=== PATIENT | male | born 1990 | race Caucasian/White ===

== ENCOUNTER 2022-11-22 09:25 | Outpatient (CLI) | payer OTHER, SELFPAY ==
--- NOTE | ~2022-11-22 | XR_ITS ---
EXAMINATION: XR fl inj shoulder LT - MR/CT DATE: 11/22/2022 10:19 INDICATION: Acute pain of left shoulder. 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 No prior surgery. TECHNIQUE: A time-out was performed to verify the patient's name, date of , and procedure to b e performed. The procedure including the risks, benefits, and alternatives was discussed with the pat ient. Risks discussed included bleeding and infection. The patient understood the risks and agreed to proceed. The skin overlying the left glenohumeral joint was prepped and draped in usual sterile fas ion. Anesthetic was administered with 1% lidocaine subcutaneously. A 22 G needle was advanced under fluoroscopic guidance into the joint. Subsequently, injectate consisting of 12 mL of 1:200 Multihan ce, 1:4 1% lidocaine, and 1:4 Omnipaque 240 was instilled. The needle was removed and the entry site was cleaned and dressed. There were no immediate complications. Fluoroscopy exposure time was 0.1 m inutes. The total number of images was 3. FINDINGS: Real-time fluoroscopy demonstrates the needle and contrast in the left glenohumeral joint. IMPRESSION: 1. Successful left glenohumeral joint injection of contrast for subsequent MR arthrography. Reviewed, dictated and finalized at location A. IMPRESSION: 1. Successful left glenohumeral joint injection of contrast for subsequent MR a rthrography.
--- NOTE | ~2022-11-22 | MR_ITS ---
EXAMINATION: MR shoulder LT w con DATE: 11/22/2022 10:43 INDICATION: Acute onset left shoulder pain TECHNIQUE: Magnetic resonance imaging (MRI) of the left shoulder was performed following intra-artic ular gadolinium contrast injection and without intravenous contrast. Details of the glenohumeral join t injection have been dictated separately. Sequences included axial T2-weighted FS FSE, axial T1-jorge ghted FS FSE, coronal oblique T1-weighted FS FSE, coronal oblique T2-weighted FSE, sagittal T2-weight ed FS FSE, sagittal T1-weighted FSE, and ABER (abduction external rotation) T1-weighted FS FSE. COMPARISON: None. FINDINGS: Coracoacromial arch: The acromion undersurface is flat in morphology (type I). The coracoacromial ligament is normal. Acr omioclavicular joint is normal. Rotator cuff: The supraspinatus, infraspinatus and teres minor are normal. The subscapularis is normal. Normal rota tor cuff muscle bulk and signal. Biceps tendon, glenoid labrum and glenohumeral cartilage: Long head of the biceps tendon is normal. Chronic osseous Bankart lesion with small nonunited fractur e fragment at the 3 to 4:00 position of the glenoid still attached to the torn labrum. The labral tea r extends associated periosteal stripping extends inferiorly to the 5:30 position. No associated raymond ow edema to suggest acute fracture. Small region of degenerative tearing at the 9:30-10:30 position o f the posterosuperior labrum. Mild partial-thickness cartilage loss with smooth chondral surface robin g the inferior to anteroinferior glenoid. Bones and other: There is mild marrow edema along the cephalad aspect of a likely more chronic Hill-Sachs fracture tro ugh at the superior posterolateral aspect of the humeral head suggesting possible recent recurrent in jury. Marrow signal is otherwise normal. No abnormal fluid signal in the subacromial/subdeltoid bursa to suggest bursitis. IMPRESSION: 1. 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 Marrow edema along portions of the Hill-Sachs fractur e trough stress and potential a more recent recurrent injury. 2. Additional degenerative tearing at the posterior superior glenoid labrum. Reviewed, dictated and finalized at location B. IMPRESSION: 1. Stigmata of a chronic anterior right humeral dislocation with chronic nonuni kedar osseous Bankart fracture with associated labral tear at the anteroinferior glenoid and chronic Hill-Sachs fracture trough at the superior posterolateral h umeral head. Marrow edema along portions of the Hill-Sachs fracture trough stre ss and potential a more recent recurrent injury. 2. Additional degenerative tearing at the posterior superior glenoid labrum.
== END 2022-11-22 09:26 | disposition home or self-care (01) ==
PROVIDERS: Visit Provider Physician Assistant
DX: S42.302A Unspecified fracture of shaft of humerus, left arm, initial encounter for closed fracture (principal); S43.432A Superior glenoid labrum lesion of left shoulder, initial encounter; T14.90XA Injury, unspecified, initial encounter
CPT/HCPCS: 23350; 73222; A9577; Q9966